=== PATIENT | female | born 1950 | race Caucasian/White ===

== ENCOUNTER → 2016-08-17 | Outpatient (CLI) | payer OTHER | LOC: BMCIMAGING 07:17 | PROVIDERS: ATTEND Internal Medicine Endocrinology, Diabetes & Metabolism | DX: E04.2 Nontoxic multinodular goiter (principal) | CPT/HCPCS: 76536-PO ==

== ENCOUNTER → 2016-10-19 | Outpatient (CLI) | payer OTHER | LOC: FIMAGING 14:19 | PROVIDERS: ATTEND Internal Medicine | DX: Z12.31 Encounter for screening mammogram for malignant neoplasm of breast (principal) | CPT/HCPCS: G0202 ==

== ENCOUNTER 2017-01-14 06:58 | Observation (INO) | payer OTHER ==
[2017-01-14] MEDS ORDERED: NS 1,000 ML IV ONE (07:00)
[2017-01-14] MEDS ORDERED: HEPARIN 10,000 UNIT/10 ML MDV ONE (07:08)
[2017-01-14] MEDS ORDERED: LIDOCAINE 1% 300 MG/30 ML SDV ONE (07:08)
[2017-01-14] MEDS ORDERED: ISOPROTERENOL HCL/D5W 0.2 MG/50 ML BAG IV ONE (07:09)
[2017-01-14] MEDS ORDERED: BUPIVACAINE 0.5% 30 ML SDV ONE (07:09)
--- NOTE | 2017-01-14 07:09 | PDHPUP ---
History & Physical Update H&P update statement: This history and physical update is based on an assessment of the patient which was completed after admission or registration (within 24 hours), but prior to the surgery/procedure. H&P update: H&P reviewed & patient examined, no change in patient's condition since H&P completed
--- NOTE | 2017-01-14 07:20 | CPEKG ---
Heart Rate: 78 RR Interval: 769 P-R Interval: 144 QRSD Interval: 88 QT Interval: 372 QTC Interval: 424 P [place]: 69 QRS [place]: 65 T Wave [place]: -62 EKG Severity - BORDERLINE ECG - EKG Impression: SINUS RHYTHM EKG Impression: BORDERLINE INFERIOR Q WAVES EKG Impression: BORDERLINE T ABNORMALITIES, DIFFUSE LEADS Electronically Signed By: Gregory Arriaga 14-Jan-2017 08:50:06
[2017-01-14 07:34] LABS: % IMMATURE GRANULYOCYTES 0.3 % (0.0-1.1); ABSOLUTE IMMATURE GRANULOCYTES 0.03 10^3/uL (0.00-0.10); ADD DIFF? NO; ADD MORPH? NO; ADD SCAN? NO; ATYPICAL LYMPHOCYTE FLAG 10 (0-99); FRAGMENT RBC FLAG 0 (0-99); HEMATOCRIT 44.8 % (38.0-47.0); HEMOGLOBIN 15.2 g/dL (12.6-16.3); LEFT SHIFT FLG 0 (0-99); LIPEMIA HEMOLYSIS FLAG 90 (0-99); MEAN CELL HEMOGLOBIN 31.5 pg (27.9-34.1); MEAN CELL HEMOGLOBIN CONCENTR. 33.9 g/dL (32.4-36.7); MEAN CELL VOLUME 92.9 fL (81.5-99.8); MEAN PLATELET VOLUME 8.7 fL (8.7-11.7); PLATELET CLUMPS FLAG 10 (0-99); PLATELET COUNT 308 10^3/uL (150-400); RED BLOOD CELL COUNT 4.82 10^6/uL (4.18-5.33)
[2017-01-14 07:42] LABS: INR 0.97 (0.83-1.16); PROTIME(PATIENT) 12.8 SEC (12.0-15.0)
[2017-01-14 07:43] LABS: APTT 25.8 SEC (23.0-38.0)
[2017-01-14 07:48] LABS: ANION GAP 16 mEq/L (8-16); CALCIUM 9.9 mg/dL (8.5-10.4); CARBON DIOXIDE 19 mEq/l (22-31); CHLORIDE 105 mEq/L (97-110); CREATININE 0.6 mg/dL (0.6-1.0); GLOMERULAR FILTRATION RATE > 60; GLUCOSE 152 mg/dL (70-100); MAGNESIUM 1.9 mg/dL (1.6-2.3); POTASSIUM 3.9 mEq/L (3.5-5.2); SODIUM 140 mEq/L (134-144)
[2017-01-14] MEDS ORDERED: MIDAZOLAM 2 MG/2 ML VIAL ONE (08:27)
[2017-01-14] MEDS ORDERED: PROPOFOL/EMULSION 500 MG/50 ML BOTTLE IV ONE (08:39)
[2017-01-14] MEDS ORDERED: fentaNYL 100 MCG/2 ML INJ ONE (08:39)
[2017-01-14] MEDS ORDERED: RANITIDINE 50 MG/2 ML VIAL ONE (09:29)
[2017-01-14] MEDS ORDERED: ROCURONIUM 50 MG/5 ML VIAL ONE ×2 (09:29→09:55)
[2017-01-14] MEDS ORDERED: ONDANSETRON 4 MG/2 ML VIAL ONE (09:29)
[2017-01-14] MEDS ORDERED: METOCLOPRAMIDE 10 MG/2 ML VIAL ONE (09:29)
[2017-01-14] MEDS ORDERED: PHENYLEPHRINE HCL 100 MCG/ML SYR ONE (09:29)
[2017-01-14] MEDS ORDERED: PHENYLEPHRINE 10 MG/ML SDV ONE (09:29)
[2017-01-14] MEDS ORDERED: SUGAMMADEX SODIUM 200 MG/2 ML VIAL IVP ONE (09:29)
[2017-01-14] MEDS ORDERED: MEPERIDINE 25 MG/ML SYR IVP PRN (10:19)
[2017-01-14] MEDS ORDERED: fentaNYL 100 MCG/2 ML INJ IVP PRN (10:19)
[2017-01-14] MEDS ORDERED: ONDANSETRON 4 MG/2 ML VIAL IVP PRN ×2 (10:19→11:17)
[2017-01-14] MEDS ORDERED: NS 500 ML IV PRN (10:19)
[2017-01-14] MEDS ORDERED: METOCLOPRAMIDE 10 MG/2 ML VIAL IVP PRN (10:19)
[2017-01-14] MEDS ORDERED: DEXAMETHASONE 4 MG/ML VIAL IVP PRN (10:19)
[2017-01-14] MEDS ORDERED: NALOXONE HCL 0.4 MG/ML INJ IVP PRN (10:19)
[2017-01-14] MEDS ORDERED: LR 500 ML IV PRN (10:19)
[2017-01-14] MEDS ORDERED: ALBUTEROL 3 ML DEYVIAL IH PRN (10:19)
--- NOTE | 2017-01-14 10:19 | PDANEPAE ---
ANE Past Medical History - Pulmonary History Hx Sleep Apnea: No ANE Review of Systems Review of Systems: ANE Patient History - Allergies Allergies/Adverse Reactions: KEREN Inhibitors Allergy (Verified 01/08/17 09:48) pass out, low bp. rapid heart beat erythromycin base Allergy (Verified 01/08/17 09:48) stomach bleeding - Home Medications Home Medications: metFORMIN SR [Glucophage XR 500 mg (*)] 1,000 mg PO BID 03/10/09 [Last Taken 04/17] Aspirin [Aspirin 81mg (*)] 81 mg PO HS 01/08/17 [Last Taken Unknown] Atenolol [Tenormin 25 mg (*)] 25 mg PO DAILY 01/08/17 [Last Taken Unknown] Atorvastatin Calcium [Lipitor 40 mg (*)] 40 mg PO HS 01/08/17 [Last Taken Unknown] Canagliflozin [Invokana] 300 mg PO DAILY 01/08/17 [Last Taken Unknown] Cholecalciferol Vit D3 [Vitamin D3 (*)] 1,000 units PO DAILY 01/08/17 [Last Taken Unknown] Cyanocobalamin [Vitamin B12 (*)] 1,000 mcg PO DAILY 01/08/17 [Last Taken Unknown ] Herbals/Supplements -Info Only 1 ea PO DAILY 01/08/17 [Last Taken Unknown] Omeprazole [Prilosec 20 mg] 20 mg PO HS 01/08/17 [Last Taken Unknown] - Smoking Hx Smoking Status: Never smoked ANE Labs/Vital Signs - Labs Result Diagrams: 01/14/17 07:27 01/14/17 07:27 - Vital Signs Height: 157 cm Weight: 63.5 kg ANE Physical Exam - Airway Neck exam: FROM Mallampati Score: Class 1 Mouth exam: normal dental/mouth exam - Pulmonary Pulmonary: no respiratory distress, no rales or rhonchi, clear to auscultation - Cardiovascular Cardiovascular: regular rate and rhythym, no murmur, rub, or gallop - ASA Status ASA Status: III ANE Anesthesia Plan Anesthesia Plan: general endotracheal anesthesia
[2017-01-14] MEDS ORDERED: ATROPINE SULFATE 1 MG/10 ML SYR ONE (10:57)
[2017-01-14] MEDS ORDERED: OXYCODONE/APAP 5/325 TAB PO PRN (11:17)
[2017-01-14] MEDS ORDERED: ACETAMINOPHEN 325 MG TAB PO PRN (11:17)
[2017-01-14 12:05] LABS: ANION GAP 13 mEq/L (8-16); CALCIUM 8.8 mg/dL (8.5-10.4); CARBON DIOXIDE 20 mEq/l (22-31); CHLORIDE 108 mEq/L (97-110); CREATININE 0.6 mg/dL (0.6-1.0); GLOMERULAR FILTRATION RATE > 60; GLUCOSE 99 mg/dL (70-100); MAGNESIUM 1.7 mg/dL (1.6-2.3); POTASSIUM 3.5 mEq/L (3.5-5.2); SODIUM 141 mEq/L (134-144)
--- NOTE | 2017-01-14 13:02 | POSTANESTH ---
Post Anesthetic Evaluation Cardiovascular Status: Normal, Stable Respiratory Status: Normal, Stable Level of Consciousness/Mental Status: Can Participate in Eval Pain Control: Adequate, Prn Tx Ordered Nausea/Vomiting Control: Adequate, Prn Tx Ordered Complications Possibly Related to Anesthesia: None Noted
--- NOTE | 2017-01-14 17:06 | EPPROC ---
Electrophysiology Procedure Note: PROCEDURES PERFORMED: 1. 29404-55 EP evaluation with RA/RV/LA pace/record, with arrhythmia induction 2. EP evaluation with RA/RV pace record, insert/reposition catheter, with arrhythmia induction 3. 03120 Intracardiac catheter ablation, SVT arrhythmogenic focus 4. 61432 3D mapping 5. Fluoroscopy DCCV INDICATION: THis is a 66 yr old female with episodes of paltpiation with lightheadedness for which she had to go to the ER on multiple occasion. SHe had been cardioverted in ER. In view of this she was evaluated and offered medical management vs ablation. Pt wanted to avoid meds and hence it was decided to perform Ep study with plan to perform RF ablation. Catheters and anesthesia: The patient arrived in the Electrophysiology Laboratory in the fasting state. The right clavicular region, right groin, and left groin area were prepped and draped in the usual sterile manner. Anesthesiologist administered general anesthesia. Appropriate non-invasive blood pressure, pulse oximetry and end- tidal CO2 monitoring was established. All catheters were placed percutaneously using the modified Seldinger technique , and advanced into position under fluoroscopic guidance. One decapolar catheter was palced in the CS and another CRD2 catheter was placed in the HIs position. Programmed stimulation was performed from the right atrium, left atrium ( coronary sinus) and right ventricle. Parahisian pacing demonstrated all retrograde conduction over the AV node Programmed stimulation of right atrium during infusion of isoproterenol 2 mcg/ min induced an atrial tachycardia. AV dissociation was induced with ventricular overdrive pacing confirming atrial tachycardia. On occasion her rhythm degenerated to AF and she had to undergo DCCV with 200J twice. A #7 Indonesian mapping catheter was introduced into the right atrium and used for mapping AT . . A 3D mapping system (Carto) was used. A detailed 3D map of the right atrium and coronary sinus showed earliest atrial activation along the henrry region. Fractionated signals were also noted. RF applications were delivered to this site. This accelerated and then terminated the tachycardia. Programmed stimulation in the baseline state and during infusion of isoproterenol 1, 2 and 4 mcg/min post ablation was performed. No tachycardia could be induced. The catheters were removed. The patient was transferred to the cardiovascular holding area in stable condition. Vascular access sheaths were removed in the holding area. There were no apparent complications. RESULTS AT originating from henrry. Absence of dual AV beatrice physiology Absence of accessory pathway Successful ablation of the AT CONCLUSIONS: 1. Focal atrial tachycardia originating from RA henrry. 2. Successful ablation of focal atrial tachycardia. 3. No apparent complications.
[2017-01-14] MEDS: metFORMIN SR 500 MG TAB PO SCH (20:25)
[2017-01-14] MEDS ORDERED: NON-FORMULARY NEW DRUG (Omeprazole [Prilosec 20 Mg] 20 MG) PO SCH (21:00)
[2017-01-14] MEDS ORDERED: ATORVASTATIN CALCIUM 40 MG TAB PO SCH (21:00)
[2017-01-14] MEDS ORDERED: PANTOPRAZOLE SODIUM 40 MG TAB PO SCH (21:00)
[2017-01-15 03:07] VITALS: TEMP 98.2
[2017-01-15 05:12] LABS: % IMMATURE GRANULYOCYTES 0.4 % (0.0-1.1); ABSOLUTE IMMATURE GRANULOCYTES 0.04 10^3/uL (0.00-0.10); ADD DIFF? NO; ADD MORPH? NO; ADD SCAN? NO; ATYPICAL LYMPHOCYTE FLAG 20 (0-99); FRAGMENT RBC FLAG 0 (0-99); HEMOGLOBIN 14.1 g/dL (12.6-16.3); LEFT SHIFT FLG 0 (0-99); LIPEMIA HEMOLYSIS FLAG 90 (0-99); MEAN CELL HEMOGLOBIN 31.5 pg (27.9-34.1); MEAN CELL HEMOGLOBIN CONCENTR. 34.4 g/dL (32.4-36.7); MEAN CELL VOLUME 91.5 fL (81.5-99.8); PLATELET CLUMPS FLAG 10 (0-99); PLATELET COUNT 297 10^3/uL (150-400); RED BLOOD CELL COUNT 4.48 10^6/uL (4.18-5.33); RED CELL DISTRIBUTION WIDTH 12.5 % (11.5-15.2)
[2017-01-15 05:20] LABS: INR 1.09 (0.83-1.16)
[2017-01-15 05:36] LABS: ANION GAP 10 mEq/L (8-16); CALCIUM 9.6 mg/dL (8.5-10.4); CARBON DIOXIDE 21 mEq/l (22-31); CHLORIDE 104 mEq/L (97-110); CREATININE 0.6 mg/dL (0.6-1.0); GLOMERULAR FILTRATION RATE > 60; GLUCOSE 116 mg/dL (70-100); POTASSIUM 3.6 mEq/L (3.5-5.2); SODIUM 135 mEq/L (134-144)
[2017-01-15 05:45] LABS: CREATINE KINASE-MB FRACTION 1.99 ng/mL (0.00-3.19); TROPONIN I 0.163 ng/mL (0.000-0.034)
--- NOTE | 2017-01-15 08:53 | CPEKG ---
Heart Rate: 86 RR Interval: 698 P-R Interval: 152 QRSD Interval: 90 QT Interval: 372 QTC Interval: 445 P [place]: 65 QRS [place]: 50 T Wave [place]: -24 EKG Severity - ABNORMAL ECG - EKG Impression: SINUS RHYTHM EKG Impression: PROBABLE INFERIOR INFARCT, AGE INDETERMINATE Electronically Signed By: Gregory Arriaga 15-Jan-2017 15:52:24
[2017-01-15] MEDS ORDERED: NON-FORMULARY NEW DRUG (Canagliflozin [Invokana] 300 MG) PO SCH (09:00)
[2017-01-15] MEDS ORDERED: CHOLECALCIFEROL VIT D3 1,000 UNITS TAB PO SCH (09:00)
[2017-01-15] MEDS ORDERED: ASPIRIN 325 MG TAB PO SCH (09:00)
[2017-01-15] MEDS ORDERED: CYANO/VITAMIN B12 1000 MCG TAB PO SCH (09:00)
[2017-01-15] MEDS ORDERED: Herbals/Supplements -Info Only PO SCH (09:00)
[2017-01-15] MEDS ORDERED: ATENOLOL 25 MG TAB PO SCH (09:00)
[2017-01-15] MEDS ORDERED: Canagliflozin [Invokana] 300 MG PO SCH (09:00)
[2017-01-15] MEDS: metFORMIN SR 500 MG TAB PO SCH (10:03)
[2017-01-15 10:52] VITALS: RESP 20; O2SAT 96
[2017-01-15 11:10] VITALS: BP 118/81; PULSE 83
--- NOTE | 2017-01-15 13:06 | ECHO ---
[email or web address] [address] [address] Main: [phone] Fax: Transthoracic Echocardiogram Name: CAROLANN LOUIE MR#: [id number] Study Date: 01/15/2017 Study Time: 08:55 AM Date of : 1950 Age: 66 year(s) Height: 154.9 cm (61 in.) Weight: 63.05 kg (139 lb.) BSA: 1.62 m2 Gender: Female Examination: Echo Indication: Post Ablation Image Quality: Contrast: Requested by: Santiago Palacios BP: 129 mmHg/85 mmHg Heart Rate: Rhythm: Indication: Post Ablation Procedure Staff Mix Crusher Operator: Abhinav Mascorro Reading Physician: Yaw Mendez Requesting Provider: Conclusions: Normal size left ventricle. Mild concentric LV hypertrophy. Normal global systolic LV function. EF is 77 %. Grade 1 diastolic dysfunction (abnormal relaxation). The tricuspid valve is normal in appearance and function. The pulmonary artery pressure is normal. No pericardial effusion. Measurements: Chambers Valvular Assessment AV/MV Valvular Assessment TV/PV Normal Normal Normal Name Value Range Name Value Range Name Value Range Ao Fariba (MM): 3.1 cm (2.2 cm-3.7 AV Vmax: 1.32 m/s (1 m/s-1.7 TR Vmax: 2.47 mm/s ( - ) cm) m/s) TR PGmax: 24 mmHg ( - ) IVSd (2D): 0.9 cm (0.6 cm-1.1 AV maxP mmHg ( - ) syst. PAP: 29 mmHg ( - ) cm) LVOT Vmax: 1.09 m/s (0.7 m/s-1.1 PV Vmax: 0.80 m/s (0.6 m/s-0.9 LVDd (2D): 3.4 cm (3.9 cm-5.3 m/s) m/s) cm) MV E Vmax: 0.80 m/s ( - ) PV PGmax: 3 mmHg ( - ) LVDs (2D): 1.9 cm (2.1 cm-4 MV A Vmax: 1.02 m/s ( - ) cm) MV E/A: 0.78 ( - ) LVPWd (2D): 0.9 cm ( - ) LVEF (2D): 77 (>=54 %) Continued Measurements: Chambers Valvular Assessment AV/MV Valvular Assessment TV/PV Name Value Name Value Name Value LADs Lon.0 cm MV E/E' Septal: 10.50 CVP (est.): 5 mmHg Patient: CAROLANN LOUIE Study Date: 01/15/2017 Page 1 of 2 08:55 AM LA Area: 13.7 cm2 MV E/E' Lateral: 10.70 Findings: Left Ventricle: Normal size left ventricle. Mild concentric LV hypertrophy. Normal global systolic LV function. EF is 77 %. No regional wall motion abnormality. Grade 1 diastolic dysfunction (abnormal relaxation). Right Ventricle: Normal size right ventricle. Normal RV function. Left Atrium: The left atrium is normal in size. Right Atrium: The right atrium is normal in size. Mitral Valve: The mitral valve is normal in appearance and function. Aortic Valve: The aortic valve is normal in appearance and function. The aortic valve is tri-leaflet. Tricuspid Valve: The tricuspid valve is normal in appearance and function. Trivial tricuspid valve regurgitation. The pulmonary artery pressure is normal. Pulmonic Valve: The pulmonic valve is normal in appearance and function. Aorta: The aorta is normal. Pericardium: No pericardial effusion. There is pericardial fat. (No Signature Object) Patient: CAROLANN LOUIE Study Date: 01/15/2017 Page 2 of 2 08:55 AM [id number]
--- NOTE | 2017-01-15 16:50 | ASDISCHSUM ---
Discharge Information Plan Status:Home with No Needs Medically Cleared to Leave:01/14/2017 Discharge Date:01/15/2017 12:13 PM D/C Disposition: ADT D/C Disposition:Home, Routine, Self-Care Projected Discharge Date:01/15/2017 12:00 AM Transportation at D/C: Discharge Delay Reason: Follow-Up Date:01/15/2017 12:00 AM Discharge Slot: Final Diagnosis: Placement Information Patient Contact Information Contact Name:ALPA Relationship:Life Partner Address:[address] City:[place] [facility] Phone: [facility]/Zip Code:[place] [address] Email: Financial Information Financial Class:HMO and PPO Plans Primary Plan Desc:KELY Primary Plan Number:[id number] Secondary Plan Desc: Secondary Plan Number: Assessment Information Intervention Information
--- NOTE | 2017-01-18 09:05 | GDS ---
[f rep st] DISCHARGE SUMMARY ADMIT DIAGNOSES: 1. Supraventricular tachycardia. 2. Planned electrophysiology study. DISCHARGE DIAGNOSIS: Status post successful supraventricular tachycardia ablation. COURSE OF HOSPITALIZATION: The patient is a patient of Dr. Yaw Mendez and was referred to Dr. Santiago Palacios for electrophysiology evaluation. She was having palpitations that were lasting longer than 3 hours. She would begin to feel lightheaded and had tunnel vision. She did have an EKG that showed PSVT at 165 beats per minute. She did have previous episode in 2016 and at that time was worked up for bigeminy with a normal echocardiogram. She has no known triggers for these symptoms. Relieving factors seem to be rest. She has been on beta blockers. In consultation with Dr. Santiago Palacios, it was determined the best course of further evaluation would be with electrophysiology study and possible ablation. She was in agreement with this plan. She was taken to the EP lab by Dr. Santiago Palacios on 01/14/2017, where he was able to successfully isolate and perform ablation therapy for PSVT. There were no complications. She then was taken to the PCU for overnight observation, where she has done well. At this time, she currently is stable for discharge. ALLERGIES: She does have allergy to KEREN inhibitors and erythromycin. DISCHARGE MEDICATIONS: Include Glucophage XR 1000 mg twice daily, vitamin B12 1000 mcg daily, vitamin D3 1000 units daily, Prilosec 20 mg at bedtime, herbal supplements daily, Lipitor 40 mg at bedtime, atenolol 25 mg daily, Invokana 300 mg daily, aspirin 325 mg daily for 1 month, Tylenol 325-650 mg every 4 hours as needed for pain. ELECTROPHYSIOLOGY PROCEDURE: Indication, multiple episodes of palpitations requiring emergency room visits. In the past, she has been cardioverted in the emergency room. RESULTS OF ELECTROPHYSIOLOGY STUDY: Successful ablation of the atrial tachycardia. CONCLUSION: 1. Focal atrial tachycardia originating from the RA Melissa. 2. Successful ablation of focal atrial tachycardia. 3. No apparent complications. DISCHARGE PLAN: 1. Groin site precautions were provided orally with written information. She is to avoid heavy lifting, pushing, pulling greater than 10 pounds for 7 days. Should groin sites bleed, she will hold firm continuous pressure to site. 2. Should she have further problems or complications, she is to call [facility]. She will follow up with Dr. Santiago Palacios on February 17, 2017. 3. She will follow up with Dr. Yaw Mendez her primary patent litigation associate in 1-2 weeks. At this time, she currently is stable for discharge. /[id number]/MODL MTDD
== END 2017-01-15 12:13 | disposition home or self-care (01) ==
LOC: FCATH 06:58 → F2W 10:59
PROVIDERS: ADMIT Internal Medicine Cardiovascular Disease; ATTEND Internal Medicine Cardiovascular Disease
PROC: 4A023FZ Measurement of Cardiac Rhythm, Percutaneous Approach (ICD-10-PCS; principal; 2017-01-14)
PROC: 02573ZZ Destruction of Left Atrium, Percutaneous Approach (ICD-10-PCS; principal; 2017-01-14)
PROC: 025K3ZZ Destruction of Right Ventricle, Percutaneous Approach (ICD-10-PCS; principal; 2017-01-14)
PROC: 5A1213Z Performance of Cardiac Pacing, Intermittent (ICD-10-PCS; principal; 2017-01-14)
PROC: B2161ZZ Fluoroscopy of Right and Left Heart using Low Osmolar Contrast (ICD-10-PCS; principal; 2017-01-14)
PROC: 02K83ZZ Map Conduction Mechanism, Percutaneous Approach (ICD-10-PCS; principal; 2017-01-14)
PROC: 02563ZZ Destruction of Right Atrium, Percutaneous Approach (ICD-10-PCS; principal; 2017-01-14)
PROC: 02H73MZ Insertion of Cardiac Lead into Left Atrium, Percutaneous Approach (ICD-10-PCS; principal; 2017-01-14)
DX: I47.1 Supraventricular tachycardia (principal); E11.9 Type 2 diabetes mellitus without complications; Z79.84 Long term (current) use of oral hypoglycemic drugs
CPT/HCPCS: 93005; 93306; 93613; 93621; 93623; 93653; C1732; G0378; C1730; J0461; J1644; J2250; J2370; J2405; J2704; J2765; J2780; J3010

== ENCOUNTER → 2017-08-16 | Outpatient (CLI) | payer OTHER | LOC: FIMAGING 16:04 | PROVIDERS: ATTEND Internal Medicine Endocrinology, Diabetes & Metabolism | DX: E04.1 Nontoxic single thyroid nodule (principal) ==

== ENCOUNTER → 2017-10-28 | Outpatient (CLI) | payer OTHER | LOC: FIMAGING 15:32 | PROVIDERS: ATTEND Internal Medicine | DX: Z12.31 Encounter for screening mammogram for malignant neoplasm of breast (principal) ==